=== PATIENT | female | born 1985 ===

== ENCOUNTER → 2025-04-09 08:28 | Outpatient (BNVA) | payer BC, MEDICAID, SELFPAY | PROVIDERS: Family Provider Nurse Practitioner Family; Visit Provider Student in an Organized Health Care Education/Training Program | DX: S52.91XA Unspecified fracture of right forearm, initial encounter for closed fracture (principal); S52.501A Unspecified fracture of the lower end of right radius, initial encounter for closed fracture; X58.XXXA Exposure to other specified factors, initial encounter | CPT/HCPCS: 73110 ==

== ENCOUNTER 2025-04-09 10:35 | Outpatient (CLI) | payer BC, MEDICAID, SELFPAY | END 2025-04-09 10:36 | disposition home or self-care (01) | LOC: SPT 10:36 | PROVIDERS: Family Provider Nurse Practitioner Family; Visit Provider Student in an Organized Health Care Education/Training Program | DX: Z46.89 Encounter for fitting and adjustment of other specified devices (principal); S52.501D Unspecified fracture of the lower end of right radius, subsequent encounter for closed fracture with routine healing; X58.XXXD Exposure to other specified factors, subsequent encounter | CPT/HCPCS: L3982 ==

== ENCOUNTER 2025-04-12 10:51 | Outpatient (CLI) | payer BC, MEDICAID, SELFPAY ==
--- NOTE | 2025-04-12 10:56 | CT_ITS ---
WS: [id number] CT RIGHT WRIST, NONCONTRAST HISTORY: right distal radius fracture Technique: All CT scans at [facility] use at least one of these dose optimization techniques: automated exposure control; mA and/or kV adjustment per patient size (includes targeted exams where dose is matched to clinical indication); or iterative reconstruction. DLP: 119.18 mGy.cm COMPARISON: RIGHT wrist 04/09/2025 Imaging is performed through splint material causing artifact through the bones and soft tissue. There also appears to be some motion artifact. Markedly comminuted intra-articular fracture involving the distal radius. There are multiple fractures extending to the articular surface and into the metaphysis. Mild displacement by 4.8 mm of one the fracture lines extending to the articular surface near the radial styloid. Mild displacement of the lateral radial styloid inferiorly. Inferior displacement of the distal volar radius which extends inferior to the scaphoid and does contact the scaphoid. Normal scaphoid lunate interval. Carpal rows are appropriate. Distal ulna appears intact. No additional fractures are identified. Scaphoid is intact. Small amount of soft tissue edema surrounding the wrist. CT/CT wrist RT wo con* [id number] IMPRESSION: 1. Markedly comminuted intra-articular distal radial fracture. Fracture extend s into the metaphysis and also along multiple sites of the articular surface. 2. Displacement of the radial fracture which extends inferior and contacts the scaphoid.
== END 2025-04-12 10:52 | disposition home or self-care (01) ==
LOC: RAD 10:52
PROVIDERS: Visit Provider Student in an Organized Health Care Education/Training Program
DX: S52.571A Other intraarticular fracture of lower end of right radius, initial encounter for closed fracture (principal); X58.XXXA Exposure to other specified factors, initial encounter
CPT/HCPCS: 73200

== ENCOUNTER → 2025-04-17 09:03 | Outpatient (BNVA) | payer BC, MEDICAID, SELFPAY | PROVIDERS: Visit Provider Student in an Organized Health Care Education/Training Program | DX: S52.501A Unspecified fracture of the lower end of right radius, initial encounter for closed fracture (principal); X58.XXXA Exposure to other specified factors, initial encounter | CPT/HCPCS: 73110 ==

== ENCOUNTER 2025-04-18 12:55 | Day surgery (SDC) | payer BC, MEDICAID, SELFPAY ==
[2025-04-18] VITALS (11 sets, daily range): BP systolic 98–134; BP diastolic 62–102; PULSE 63–96; RESP 16–18; TEMP 36.3–36.4; O2SAT 97–100; BMI 36.1
--- NOTE | 2025-04-18 13:15 | W.PM.OPSUD ---
Surgery/Procedure H&P Update DATE OF PROCEDURE: April 18, 2025 DATE H&P PERFORMED: 04/17/25 H&P UPDATE INFORMATION: I have reviewed H&P completed within last 30 days, I have examined patient prior to procedure and No changes to prior documentation PREOP DIAGNOSIS: Displaced right intra-articular distal radius fracture PRIMARY INDICATION FOR PROCEDURE: Displaced right intra-articular distal radius fracture PLANNED PROCEDURE: Operation Date: 04/18/25 14:30 Proposed Procedures p ORIF Distal Radius(Right) - Alli Miramontes DO
[2025-04-18 13:30] LABS: OR HCG Qualitative Urine Negative (Negative)
[2025-04-18] MEDS: acetaminophen 1,000 MG/100 ML PIGGYBACK 400 MG IV (13:44)
--- NOTE | 2025-04-18 14:09 | ANES.PREANE2 ---
Pre-Anesthetic Assessment Height/Weight: Height 5 ft 3 in Weight 204 lb Temp Pulse Resp BP Pulse Ox O2 Del Method 97.5 F L 96 16 134/102 99 Room Air 04/18/25 13:15 04/18/25 13:15 04/18/25 13:15 04/18/25 13:15 04/18/25 13:15 04/18/25 13:15 Preop Diagnosis: Displaced right intra-articular distal radius fracture Operation Date: 04/18/25 14:30 Proposed Procedures p ORIF Distal Radius(Right) - Alli Coweta, DO Was Beta Idalia taken within 24 hours: N/A Was Clonidine taken within 24 hours: N/A Last intake: Intake Last Liquid Date 04/18/25 Last Liquid Time 05:00 Last Solid Date 04/17/25 Last Solid Time 19:30 Social No alcohol and No tobacco Exam alert, oriented x 3, clear to auscultation bilaterally and regular rate & rhythm Airway Submandibular: within normal limits Cervical ROM: within normal limits Mallampati: Class II Dentition: full Anesthetic Plan ASA status: 2 Anesthesia: Choice and Regional (specify below) Other: No prior issues with anesthesia NPO since yesterday evening Patient has been on Pepcid for GERD Denies any cardiac or pulmonary issues METs greater than 4 Plan for peripheral nerve block Medications/Allergies Home Medications ?Medication ?Instructions ?Recorded ?Confirmed ?Last Taken ?Type Fast Form Splint #1 ea 04/09/25 04/17/25 Unknown Rx ibuprofen 200 mg capsule 200 mg PO Q6H PRN Pain 04/09/25 04/17/25 04/15/25 History cetirizine 10 mg tablet 10 mg PO DAILY 04/17/25 04/17/25 Unknown History famotidine 40 mg tablet (Pepcid) 40 mg PO DAILY 04/17/25 04/17/25 04/17/25 History Allergies Allergy/AdvReac Type Severity Reaction Status Date / Time latex Allergy Intermediate ALGY-Rash Verified 04/17/25 09:23 Sulfa (Sulfonamide Allergy Intermediate ADR-Vomitin Verified 04/17/25 09:23 Antibiotics) g shellfish derived Allergy ADR-Itching Verified 04/17/25 14:44 Current Medications Generic Name Dose Route Start Last Admin Trade Name Freq PRN Reason Stop Dose Admin Sodium Chloride 1,000 mls @ 30 mls/hr 04/18/25 13:00 04/18/25 13:44 Sodium Chloride 0.9% IV 04/19/25 12:59 30 mls/hr .Q24H CHAPARRO Administration PFSH Anesthesia Social History Smoking and tobacco/nicotine status: former use of tobacco/nicotine
--- NOTE | 2025-04-18 14:10 | ANES.PROC ---
Anesthesia Procedures Procedure/Date: 04/18/25 Nerve Block ^: Nerve Block 1: Main Anesthesia: other (100 mcg fentanyl and 2 mg Versed) Time Out Performed: Yes Consent: requested by attending/covering physician and from patient Laterality: Right Nerve block location: supraclavicular Anesthesia monitors applied: pulse oximetry, EKG, BP cuff and oxygen Nerve block position: supine Anesthetic Used: ropivicaine 0.5% Amount of anesthesia used (mL): 30 Ultrasound used to: recognize landmarks Nerve Stimulator Used?: Yes Interscalene/Femoral BLK: other needle (pjunk 4 inch) Injection: neg aspiration of heme Patient Tolerated Procedure: well Complications: none Additional Comments: Decadron 4 mg added to block
[2025-04-18] MEDS: ceFAZolin 2,000 MG in sodium chloride 0.9% (plus) 50 ML 100 MG IV (14:40)
--- NOTE | 2025-04-18 17:02 | W.PM.BPON ---
Date of Procedure: 04/18/2025 Surgeon: Alli Miramontes DO Airplane Tube Builder(s): Sean Miramontes PA-C Procedure(s) performed: Right distal radius open reduction internal fixation (greater than 4 part intra-articular)?modifier 22- secondary to fracture pattern complexity demanding twice the time it takes as well as significant intra-articular involvement with restoring joint congruity and grafting Findings of the procedure(s): Patient underwent procedure as planned without issues or complications, taken to recovery in stable condition volar splint on in place Estimated blood loss: 10 mL Specimen(s) removed: None Post-operative diagnosis: Right distal radius comminuted greater than 4 part intra-articular
--- NOTE | 2025-04-18 17:05 | PM.OP ---
Operative Report Date of procedure: April 18, 2025 Surgeon: Alli Miramontes DO Roller Coaster Engineer: Sean Miramontes PA-C: PA was necessary for assistance in this case with hand positioning to execute the procedure, retraction and protection of neurovascular structures, assist with fracture reduction as well as fracture fixation with instrumentation, as well as to assist with wound closure and dressing application. Procedure: Preop Diagnosis ?Right?distal?radius fracture ? Procedure: Post-op diagnosis: Same, greater than 4 part intra-articular Procedure done: Right distal radius open reduction internal fixation (greater than 4 part intra-articular)?modifier 22- secondary to fracture pattern complexity demanding twice the time it takes as well as significant intra-articular involvement with restoring joint congruity and grafting Implants: ?Arthrex standard peripheral rim fit anatomic distal radius dorsal plate?4-hole Combination of locking and nonlocking screws 2.7 mm?distal Combination of locking and nonlocking screws 3.5 mm proximal Surgeon: Alli Miramontes DO Anesthesia: General and nerve Block (Regional) Estimated blood loss: 10 mL Tourniquet time: 96 minutes IV fluids: 800 mL Complications: None Findings: See operative report narrative Condition: stable Disposition: same day Brief History: Patient is a 40-year-old female who presented to my office for a [id number] Right?distal?radius fracture.? Patient initially was observed as initial alignment appeared to be okay we did obtain a CT scan which showed significant joint depression and incongruency of her articular joint space which given her young age we talked about this in detail as far as continued conservative's operative approach given her joint step-off and displacement and significant comminution intra-articularly we talked about and through shared decision making she elects proceed with surgical intervention. as result through shared decision making patient would elects to proceed with?ORIF?Right?distal?radius fracture.? Detail the risk benefits complication alternatives to treatment option.? Understanding risk for surgery patient elects to proceed with surgical intervention.? All questions been answered at this time. Procedure: Patient seen and evaluated in the preoperative holding area.? Consent reviewed and signed with patient.? Correct extremities were marked and consent was reviewed and signed.? Patient was seen and evaluated by anesthesia department.? Underwent regional anesthesia. Once cleared for surgery pt was taken back to the operative suite.? Patient was then transported into the operative suite and kept on the OR gurney, all bony prominences well-padded patient was appropriate secured to bed in supine position.? An armboard was applied to the Right upper extremity.? The Right upper extremity had a nonsterile tourniquet applied.? Patient subsequently was then prepped and draped in standard orthopedic fashion she underwent anesthesia per the anesthesia department.? A final timeout was performed.? Patient received appropriate preoperative antibiotics. Esmarch was used exsanguinate the Right upper extremity and tourniquet was insufflated to 250 mmHg. Standard dorsal approach for distal radius was performed this was centering over Kamryn's tubercle a direct longitudinal incision was made to accommodate for a standard anatomic dorsal distal radius plate. Sharp scalpel incision was made through skin and subcutaneous tissue switched to Littler dissection scissors dissected out any neurovascular structures including superficial cutaneous branches and these were protected throughout the case. I came then down directly over the third dorsal compartment and subsequently exposed the EPL tendon and transposed this over Kamryn's tubercle radially. This allowed me entryway in between the 2nd and 4th compartments these were then subperiosteally elevated keeping the compartments intact and the extensor tendons were protected throughout this case immediately I then encountered the distal radius fracture site. At this point in time patient had a small fracture window dorsally I was able to place my [place] in this area to make a space to tamp up the joint surface. At this time and I made a capsulotomy for evaluation and evacuated hemarthrosis within the joint this was then thoroughly irrigated and then visualized step off. At this point time of brought in fluoroscopic imaging as well I utilized a dental pick to isolate the step-off fragment in the scaphoid fossa. At this point in time I then subsequently when isolating the dental pick this was too much pressure I subsequently utilized the [place] and was able to tamp this up against the scaphoid and took the wrist through range of motion and then was able to settle the fragment and joint congruency as it was confirmed on radiographic imaging which clearly showed a voided space of the roughly 5 mm the joint had to be tamped up for joint congruency. This was evident on fluoroscopic imaging and had satisfactory reduction. This was able to hold its position at this time. I then took multiple fluoroscopic images to confirm satisfactory reduction with this and latter day of joint surface this did help the comminution over the radial styloid and had this in anatomic alignment as well. At this point time I open 1 cc of crushed cancellous bone chips and packed these gently with in the voided space to allow for structural integrity to prevent from having the joint space again collapse. Once this was done I then closed the cortical window dorsally and then at this point in time was satisfied with our reduction taking final fluoroscopic imaging and then selected our plate. We selected an Arthrex dorsal distal radius locking plate this was a peripheral rim fit I originally was planning on utilizing a fragment specific however given the comminution the peripheral rim fit allow me to have complete Rafter and along the entirety of the distal radius surface which at this point in time patient did have significant comminution and the isolated fragment specific would only provide 1 screw in so as a result I selected this peripheral rim plate. At this point in time was the standard size and was found to be appropriate for the patient. I then laid this directly in satisfactory position and placed K wires to hold hide once I was satisfied with this position I was clearly evident we are right along the peripheral rim as we had direct visualization of the joint line at this point in time I subsequently drilled the 3.5 mm bicortical screw in the oblong place made minor adjustments to the plate to be in satisfactory alignment. At this point in time I then utilized the variable locking guide along the peripheral rim. Initially placed a bicortical screw to obtain good plate to bone interface distally once I satisfied with this I then subsequently placed all the locking screws distally I subsequently drilled measured placed appropriate locking screws along the entirety rafting the subchondral bone and this was done under fluoroscopic imaging. Once this was complete I then turned my attention proximally. I subsequently placed the 3.5 locking towers approximately and placed an additional 3 locking screws around the cortical screw. These had excellent fixation these were subsequently drilled measured and placed appropriate length locking screws proximally this obtained for screws proximally and subsequently 5 screws distally. I did at the end and change out the initial cortical screw distally for a shorter locking screw. This point in time all screws were then checked and locked into the plate and had excellent purchase. I then took final fluoroscopic imaging and had satisfactory reduction of the distal radius. Given the complexity of this case which required greater than 2 times the standard amount of time for a standard distal radius this required a more meticulous approach to the distal radius as well as required significant attention to intra-articular fracture involvement requiring joint space reduction and congruity as well as utilizing bone graft chips to maintain joint integrity this case should be considered as modifier 22 due to its complexity with greater than 4 part intra-articular involvement and requiring twice the amount of time for standard distal radius fixation due to complex fracture pattern. At this point in time satisfied with reduction and fixation I then took the wrist through range of motion and stressed the DRUJ which was stable. At this point in time thorough irrigation performed tourniquet deflated hemostasis was satisfactory. At this point in time I closed this in layered fashion and then subsequently utilized 2-0 Vicryl suture to reapproximate the extensor retinaculum of the 2nd and 4th compartment creating full-thickness sleeves and protection directly over the plate. Third dorsal compartment was left transposed. Then closed the subcutaneous tissue with 3-0 Vicryl suture and then running nylon suture for skin. Patient tolerated procedure well without issues or complications she was then dressed with Xeroform 4 x 4's Kerlix ABD soft roll and a volar splint applied she was awake from anesthesia and taken recovery in stable condition. Patient was given a sling. Disposition: Patient taken to PACU in stable condition recovering well receive appropriate discharge instructions as well as pain medication postoperatively.? Maintain splint until follow-up.? Nonweightbearing to operative upper extremity We will follow-up with Ortho in the office in 2 weeks.? If any questions or concerns feel free to contact the office.
--- NOTE | 2025-04-18 17:12 | XR_ITS ---
WS: [id number] Exam: XR wrist RT min 3V* [id number] Date/Time of Exam: 04/18/2025 5:12 PM Reason For Exam: OR PIC, ORIF DLP: Intraoperative AP and lateral C-arm images of the RIGHT wrist depict dorsal plate and screw fixation involving a fracture of the distal radius. Alignment is anatomic for healing.
--- NOTE | 2025-04-18 17:14 | PM.PACU ---
PACU note Narrative: Patient is a 40-year-old female who just underwent a right distal radius ORIF. Patient transferred to PACU in stable condition. Pain is well controlled. Dressing and splint on hand is dry and in place. Patient's fingers are warm and well-perfused. normal cap refill under 2 seconds. Unable to form any further motor or sensation assessment on right upper extremity due to residual block Exam: awake Disposition: discharged
--- NOTE | 2025-04-18 18:25 | ANE.PACU2 ---
Inpatient post-anesthesia follow up: Airway intact: Yes Vital signs: Temperature 97.4 F Pulse Rate 82 Respiratory Rate 16 Blood Pressure 118/82 Pulse Oximetry 97 Oxygen Delivery Me thod Room Air Oxygen Flow Rate 2 Fraction of Inspir ed Oxygen Hydration adequate: Yes Nausea and vomiting: No Pain level: 1 Mental status: Baseline
== END 2025-04-18 18:25 | disposition home or self-care (01) ==
PROVIDERS: PCP Nurse Practitioner Family; Visit Provider Student in an Organized Health Care Education/Training Program
PROC: (CPT 25609; principal; 2025-04-18 14:30)
DX: S52.501A Unspecified fracture of the lower end of right radius, initial encounter for closed fracture (principal); X58.XXXA Exposure to other specified factors, initial encounter; K21.9 Gastro-esophageal reflux disease without esophagitis; Z87.891 Personal history of nicotine dependence
CPT/HCPCS: 25609; 73110; 76000; 81025; C1713; C1734; J0131; J0690; J1885; J2704; J3010; J7030; J9999

== ENCOUNTER → 2025-05-01 14:01 | Outpatient (BNVA) | payer SELFPAY | PROVIDERS: PCP Nurse Practitioner Family; Visit Provider Student in an Organized Health Care Education/Training Program | DX: S52.501D Unspecified fracture of the lower end of right radius, subsequent encounter for closed fracture with routine healing (principal); X58.XXXD Exposure to other specified factors, subsequent encounter | CPT/HCPCS: 73110 ==

== ENCOUNTER 2025-05-01 14:48 | Outpatient (CLI) | payer SELFPAY | END 2025-05-01 14:49 | disposition home or self-care (01) | LOC: SOT 14:50 | PROVIDERS: PCP Nurse Practitioner Family; Visit Provider Student in an Organized Health Care Education/Training Program | DX: Z46.89 Encounter for fitting and adjustment of other specified devices (principal); S52.501A Unspecified fracture of the lower end of right radius, initial encounter for closed fracture; W18.31XA Fall on same level due to stepping on an object, initial encounter | CPT/HCPCS: 97760; L3906 ==

== ENCOUNTER 2025-05-22 13:48 | Outpatient (RCR) | payer SELFPAY | END 2025-06-21 23:59 | disposition home or self-care (01) | LOC: SOT 13:48 | PROVIDERS: Visit Provider Student in an Organized Health Care Education/Training Program | DX: S52.501A Unspecified fracture of the lower end of right radius, initial encounter for closed fracture (principal); X58.XXXA Exposure to other specified factors, initial encounter | CPT/HCPCS: 97022; 97110; 97140; 97167; 97530 ==

== ENCOUNTER → 2025-05-22 14:42 | Outpatient (BNVA) | payer BC, MEDICAID, SELFPAY | PROVIDERS: PCP Nurse Practitioner Family; Visit Provider Physician Assistant | DX: Z98.890 Other specified postprocedural states (principal); S52.501D Unspecified fracture of the lower end of right radius, subsequent encounter for closed fracture with routine healing; X58.XXXD Exposure to other specified factors, subsequent encounter | CPT/HCPCS: 73110 ==

== ENCOUNTER → 2025-06-05 14:36 | Outpatient (BNVA) | payer BC, MEDICAID, SELFPAY | PROVIDERS: PCP Nurse Practitioner Family; Visit Provider Physician Assistant | DX: Z98.890 Other specified postprocedural states (principal); Z87.81 Personal history of (healed) traumatic fracture | CPT/HCPCS: 73110 ==

== ENCOUNTER → 2025-07-03 15:01 | Outpatient (BNVA) | payer BC, MEDICAID, SELFPAY | PROVIDERS: Visit Provider Student in an Organized Health Care Education/Training Program | DX: Z98.890 Other specified postprocedural states (principal); S52.501D Unspecified fracture of the lower end of right radius, subsequent encounter for closed fracture with routine healing; X58.XXXD Exposure to other specified factors, subsequent encounter | CPT/HCPCS: 73110 ==

== ENCOUNTER 2025-07-03 15:58 | Outpatient (RCR) | payer BC, MEDICAID, SELFPAY | END 2025-07-21 23:59 | disposition home or self-care (01) | LOC: SOT 15:58 | PROVIDERS: Visit Provider Student in an Organized Health Care Education/Training Program | DX: S52.501A Unspecified fracture of the lower end of right radius, initial encounter for closed fracture (principal); X58.XXXA Exposure to other specified factors, initial encounter | CPT/HCPCS: 97110; 97140 ==

== ENCOUNTER → 2025-07-31 13:16 | Outpatient (BNVA) | payer BC, MEDICAID, SELFPAY | PROVIDERS: Visit Provider Student in an Organized Health Care Education/Training Program | DX: Z98.890 Other specified postprocedural states (principal); S52.501D Unspecified fracture of the lower end of right radius, subsequent encounter for closed fracture with routine healing; X58.XXXD Exposure to other specified factors, subsequent encounter | CPT/HCPCS: 73110 ==